=== PATIENT | male | born 1960 | race Caucasian/White ===

== ENCOUNTER 2019-02-07 06:22 | Day surgery (SDC) | payer OTHER, MEDICARE ==
[~2019-02-07] VITALS: Ht 162.6 cm; Wt 65.0 kg
[~2019-02-07 06:22] MED LIST: RINGERS SOLUTION,LACTATED 1,000 ML IV ONE
[2019-02-07] MEDS ORDERED: KETAMINE HCL 50 MG/ML 10 ML VIAL IVP ONE (06:23)
[2019-02-07] MEDS ORDERED: FentaNYL CITRATE-PF 100 MCG/2 ML VIAL IVP ONE (06:23)
[2019-02-07] MEDS ORDERED: PROPOFOL 1% 20 ML VIAL IVP ONE (06:23)
[2019-02-07] MEDS ORDERED: DEXAMETHASONE SOD PHOS 4 MG/ML VIAL IVP ONE (06:23)
[2019-02-07] MEDS ORDERED: ONDANSETRON HCL 4 MG/2 ML VIAL IVP ONE (06:23)
[2019-02-07] MEDS ORDERED: LIDOCAINE/PF 2% 5 ML VIAL IM ONE (06:23)
[2019-02-07] MEDS ORDERED: SUCCINYLCHOLINE CHLORIDE 20 MG/ML 10 ML VIAL IVP ONE (06:23)
[2019-02-07] MEDS ORDERED: LEVO50 PO (07:02)
[2019-02-07] MEDS ORDERED: FOLI1 PO (07:02)
[2019-02-07] MEDS ORDERED: NALT50TA6 PO (07:02)
[2019-02-07] MEDS ORDERED: MULT1TAB66 PO (07:02)
[2019-02-07] MEDS ORDERED: OLAN7.5T2 PO (07:02)
[2019-02-07] MEDS ORDERED: OS500 PO (07:02)
[2019-02-07] MEDS ORDERED: LEVO330T2 PO (07:02)
[2019-02-07] MEDS ORDERED: CALC200T29 PO (07:02)
[2019-02-07] MEDS ORDERED: POLY17PO29 PO (07:02)
[2019-02-07] MEDS ORDERED: MINE454C11 TP (07:02)
[2019-02-07] MEDS ORDERED: OMEP20 PO (07:02)
[2019-02-07] MEDS ORDERED: DIVA-78 PO (07:02)
[2019-02-07] MEDS ORDERED: OLAN10TA3 PO (07:02)
[2019-02-07] MEDS ORDERED: FEXO-59 PO (07:02)
[2019-02-07] MEDS ORDERED: AMPICILLIN SODIUM 1 GM/VIAL ONE (07:26)
[2019-02-07] MEDS ORDERED: SODIUM CHLORIDE 0.9% 50 ML ONE (07:26)
[2019-02-07] MEDS ORDERED: MIDAZOLAM HCL 5 MG/ML VIAL ONE (09:49)
[2019-02-07] MEDS: RINGERS SOLUTION,LACTATED 1,000 ML IV ONE (10:15)
== END 2019-02-07 13:30 | disposition home or self-care (01) ==
LOC: SURGERY 06:22
PROVIDERS: ATTEND Dentist General Practice
DX: K05.30 Chronic periodontitis, unspecified (principal); K00.7 Teething syndrome; E03.9 Hypothyroidism, unspecified; F25.9 Schizoaffective disorder, unspecified; M81.0 Age-related osteoporosis without current pathological fracture; K21.9 Gastro-esophageal reflux disease without esophagitis; D64.9 Anemia, unspecified; Z98.890 Other specified postprocedural states; Z79.899 Other long term (current) drug therapy
CPT/HCPCS: 41899; J0290; J0330; J1100; J2250; J2405; J2704; J3010; J3490 ×2; J7050; J7120

== ENCOUNTER 2020-10-22 06:22 | Day surgery (SDC) | payer OTHER, MEDICARE, MEDICAID ==
[~2020-10-22 06:22] MED LIST changes: +CALC200T29 PO; +DIVA-112 PO; +FEXO-59 PO; +FOLI-130 PO; +LEVO330T2 PO; +LEVO50 PO; +MINE454C11 TP; +MULT1TAB67 PO; +NALT50TA6 PO; +OLAN10TA3 PO; +OLAN7.5T2 PO; +OMEP20 PO; +OS500 PO; +POLY17PO52 PO; -RINGERS SOLUTION,LACTATED 1,000 ML IV ONE
[2020-10-22] MEDS ORDERED: RINGERS SOLUTION,LACTATED 1,000 ML IV ONE ×3 (06:30→10:33)
[2020-10-22] MEDS ORDERED: AMPICILLIN SODIUM 1 GM/VIAL ONE (07:21)
[2020-10-22 07:22] LABS: COVID AG,FIA SOURCE NASOPHARYNGEAL
[2020-10-22 07:27] LABS: BASOPHILS % (AUTO) 0.6 % (0.0-2.0); EOSINOPHILS % (AUTO) 3.2 % (1.0-6.0); HEMOGLOBIN 15.5 g/dL (13.5-17.5); LYMPHOCYTES # (AUTO) 3.7 K/uL (1.0-4.8); LYMPHOCYTES % (AUTO) 45.6 % (22.0-44.0); MEAN CORPUSCULAR HEMOGLOBIN 32.9 pg (26.0-34.0); MEAN CORPUSCULAR HGB CONC 33.6 G/dL (31.0-37.0); MEAN CORPUSCULAR VOLUME 98 fL (80-100); MONOCYTES # (AUTO) 0.9 K/uL (0.1-1.0); MONOCYTES % (AUTO) 10.9 % (2.0-9.0); NEUTROPHILS # (AUTO) 3.2 K/uL (1.8-7.7); NEUTROPHILS % (AUTO) 39.7 % (40.0-70.0); PLATELET COUNT (AUTO) 235 K/uL (150-450); RED BLOOD CELL COUNT(AUTO) 4.69 MIL/uL (4.50-5.90); RED CELL DISTRIBUTION WIDTH 12.8 % (11.5-14.5)
[2020-10-22 07:35] LABS: ANION GAP 11 mmol/L (8-16); CALCIUM, TOTAL 9.1 mg/dL (8.8-10.5); CARBON DIOXIDE 28 mmol/L (22-29); CHLORIDE 107 mmol/L (98-107); CREATININE 0.99 mg/dL (0.60-1.30); GLOMERULAR FILTR. RATE CALC > 60 mL/min (>60); GLUCOSE,RANDOM 95 mg/dL (70-110); POTASSIUM 3.9 mmol/L (3.5-5.1); SODIUM SERUM 146 mmol/L (136-145); UREA NITROGEN, BLOOD 11 mg/dL (7-18)
[2020-10-22 07:41] LABS: PROTHROMBIN TIME 10.4 SEC (9.4-11.6)
[2020-10-22 07:50] LABS: ALANINE AMINOTRANSFERASE 12 U/L (12-78); ALBUMIN 3.7 g/dL (3.4-5.0); ALKALINE PHOSPHATASE 43 U/L (46-116); ASPARTATE AMINOTRANSFERASE 10 U/L (15-37); BILIRUBIN,TOTAL 0.3 mg/dL (0.1-1.0); TOTAL PROTEIN, SERUM 7.6 g/dL (6.4-8.2)
[2020-10-22] MEDS ORDERED: MIDAZOLAM HCL 5 MG/ML VIAL ONE (08:53)
[2020-10-22] MEDS ORDERED: ONDANSETRON HCL 4 MG/2 ML VIAL IVP ONE (12:00)
[2020-10-22] MEDS ORDERED: FentaNYL CITRATE PF 100 MCG/2 ML VIAL IVP ONE (12:00)
[2020-10-22] MEDS ORDERED: LIDOCAINE/PF 2% 5 ML VIAL IM ONE (12:00)
[2020-10-22] MEDS ORDERED: KETAMINE HCL 50 MG/ML 10 ML VIAL IVP ONE (12:00)
[2020-10-22] MEDS ORDERED: PROPOFOL 1% 20 ML VIAL IVP ONE (12:00)
== END 2020-10-22 11:20 | disposition home or self-care (01) ==
LOC: SURGERY 06:22
PROVIDERS: ATTEND Dentist General Practice
DX: K02.9 Dental caries, unspecified (principal); K05.5 Other periodontal diseases; Z20.822 Contact with and (suspected) exposure to COVID-19; E03.9 Hypothyroidism, unspecified; M81.0 Age-related osteoporosis without current pathological fracture; K21.9 Gastro-esophageal reflux disease without esophagitis; L30.9 Dermatitis, unspecified; F25.9 Schizoaffective disorder, unspecified; D64.9 Anemia, unspecified; Z88.2 Allergy status to sulfonamides; Z88.8 Allergy status to other drugs, medicaments and biological substances; Z91.09 Other allergy status, other than to drugs and biological substances; Z86.16 Personal history of COVID-19; Z79.01 Long term (current) use of anticoagulants; Z79.899 Other long term (current) drug therapy
CPT/HCPCS: 36415; 41899; 71045; 80053; 85025; 85610; 85730; 87426; C9803; J0290; J2250; J2405; J2704; J3010; J3490 ×2; J7120

== ENCOUNTER 2022-04-14 06:36 | Day surgery (SDC) | payer OTHER, MEDICARE, MEDICAID ==
[~2022-04-14] VITALS: Ht 160 cm; Wt 64.1 kg
[~2022-04-14 06:36] MED LIST changes: +FEXO-270 PO; -FEXO-59 PO; -OLAN10TA3 PO; +OLAN10TA74 PO; -OLAN7.5T2 PO; +OLAN7.5T22 PO; +RINGERS SOLUTION,LACTATED 1,000 ML IV ONE
[2022-04-14] MEDS ORDERED: DEXAMETHASONE SOD PHOS 4 MG/ML VIAL IVP ONE (06:37)
[2022-04-14] MEDS ORDERED: PROPOFOL 1% 20 ML VIAL IVP ONE (06:37)
[2022-04-14] MEDS ORDERED: LIDOCAINE/PF 2% 5 ML SYRINGE IVP ONE (06:37)
[2022-04-14] MEDS ORDERED: FentaNYL CITRATE PF 100 MCG/2 ML VIAL IVP ONE (06:37)
[2022-04-14] MEDS ORDERED: KETAMINE HCL 50 MG/ML 10 ML VIAL IVP ONE (06:37)
[2022-04-14] MEDS ORDERED: MIDAZOLAM HCL 2 MG/2 ML VIAL IVP ONE (06:37)
[2022-04-14] MEDS ORDERED: ONDANSETRON HCL 4 MG/2 ML VIAL IVP ONE (06:37)
[2022-04-14 07:04] LABS: COVID AG,FIA SOURCE NASAL SWAB
[2022-04-14] MEDS ORDERED: RINGERS SOLUTION,LACTATED 1,000 ML IV ONE (07:49)
[2022-04-14] MEDS ORDERED: AMPICILLIN SODIUM 2 GM/NS 100 ML IV ONE (08:21)
[2022-04-14] MEDS ORDERED: MIDAZOLAM HCL 5 MG/ML VIAL ONE (08:44)
[2022-04-14 09:04] LABS: BASOPHILS % (AUTO) 1.5 % (0.0-2.0); EOSINOPHILS % (AUTO) 2.2 % (1.0-6.0); HEMATOCRIT 42.7 % (41-53); HEMOGLOBIN 14.6 g/dL (13.5-17.5); LYMPHOCYTES # (AUTO) 2.3 K/uL (1.0-4.8); LYMPHOCYTES % (AUTO) 37.8 % (22.0-44.0); MEAN CORPUSCULAR HEMOGLOBIN 33.2 pg (26.0-34.0); MEAN CORPUSCULAR HGB CONC 34.1 G/dL (31.0-37.0); MEAN CORPUSCULAR VOLUME 97 fL (80-100); MONOCYTES # (AUTO) 0.8 K/uL (0.1-1.0); MONOCYTES % (AUTO) 14.1 % (2.0-9.0); NEUTROPHILS # (AUTO) 2.7 K/uL (1.8-7.7); NEUTROPHILS % (AUTO) 44.4 % (40.0-70.0); PLATELET COUNT (AUTO) 226 K/uL (150-450); RED BLOOD CELL COUNT(AUTO) 4.39 MIL/uL (4.50-5.90); RED CELL DISTRIBUTION WIDTH 12.4 % (11.5-14.5)
[2022-04-14 09:14] LABS: ANION GAP 7 mmol/L (8-16); CALCIUM, TOTAL 9.3 mg/dL (8.8-10.5); CARBON DIOXIDE 28 mmol/L (22-29); CHLORIDE 104 mmol/L (98-107); CREATININE 0.81 mg/dL (0.60-1.30); GLUCOSE,RANDOM 101 mg/dL (70-110); POTASSIUM 3.9 mmol/L (3.5-5.1); SODIUM SERUM 139 mmol/L (136-145); UREA NITROGEN, BLOOD 9 mg/dL (7-18)
[2022-04-14 09:17] LABS: PROTHROMBIN TIME 10.8 SEC (9.4-11.6)
[2022-04-14 09:19] LABS: ALANINE AMINOTRANSFERASE 14 U/L (12-78); ALBUMIN 3.6 g/dL (3.4-5.0); ALKALINE PHOSPHATASE 33 U/L (46-116); ASPARTATE AMINOTRANSFERASE 12 U/L (15-37); BILIRUBIN,TOTAL 0.3 mg/dL (0.1-1.0); GLOMERULAR FILTR. RATE CALC > 60 mL/min (>60); TOTAL PROTEIN, SERUM 7.1 g/dL (6.4-8.2)
== END 2022-04-14 12:15 | disposition home or self-care (01) ==
LOC: SURGERY 06:36
PROVIDERS: ATTEND Dentist General Practice
DX: K02.9 Dental caries, unspecified (principal); K05.30 Chronic periodontitis, unspecified; E78.5 Hyperlipidemia, unspecified; M81.0 Age-related osteoporosis without current pathological fracture; E03.9 Hypothyroidism, unspecified; K21.9 Gastro-esophageal reflux disease without esophagitis; F25.9 Schizoaffective disorder, unspecified; Z20.822 Contact with and (suspected) exposure to COVID-19; Z79.899 Other long term (current) drug therapy; Z79.01 Long term (current) use of anticoagulants; Z98.890 Other specified postprocedural states
CPT/HCPCS: 41899; 71045; 87426; 80053; 85025; 85610; 85730; 36415; 93005; J0290; J2704; J1100; J3010; J3490 ×2; J2250 ×2; J2405; J7120; C9803